=== PATIENT | male | born 1940 | race Caucasian/White ===

== ENCOUNTER 2018-09-15 13:39 | Emergency (ER) | payer MEDICARE, OTHER ==
--- NOTE | 2018-09-15 13:54 | EDM.PDOC ---
ED HPI GENERAL MEDICAL PROBLEM - General Stated Complaint: BLOOD PRESSURE HIGH Time Seen by Provider: 09/15/18 13:54 Source of Information: Reports: Patient, RN, RN Notes Reviewed History Limitations: Reports: No Limitations - History of Present Illness INITIAL COMMENTS - FREE TEXT/NARRATIVE: Pt to ER with c/o high blood pressure. Patient states he was seen in the clinic last week and diagnosed with hypertension. He was sent to [place] and had several tests done. He states he was put on 2 BP medications ( ) and he states he did not feel well and was "acting funny" after beginning the medications. He states he talked to the 's office who started him on the meds and he was to stop taking them but monitor his BP. He states he has "eye migraines" about once per month, and today he has had 2 in one day. He states he feels very anxious at this time. Patient denies any pain at this time or any further complaints. Onset: Today, Sudden - Related Data Allergies Allergy/AdvReac Type Severity Reaction Status Date / Time No Known Allergies Allergy Verified 05/10/16 19:21 Home Meds: Home Meds amLODIPine Besylate/Benazepril [Amlodipine-Benazepril 5-10 MG] 1 each PO DAILY 09/15/18 [History] Past Medical History - Past Health History Medical/Surgical History: Denies Medical/Surgical History Other Cardiovascular History: heart murmur following a trauma to chest in 1972 - Past Surgical History GI Surgical History: Reports: Hernia Repair/Other Social & Family History - Caffeine Use Caffeine Use: Reports: None - Living Situation & Occupation Occupation: Retired ED ROS GENERAL - Review of Systems Review Of Systems: ROS reveals no pertinent complaints other than HPI. ED EXAM, GENERAL - Physical Exam Exam: See Below Exam Limited By: No Limitations General Appearance: Alert, WD/WN, Anxious, Mild Distress Eye Exam: Bilateral Eye: EOMI, Normal Inspection Ears: Normal External Exam, Hearing Grossly Normal Nose: Normal Inspection Throat/Mouth: Normal Inspection, Normal Voice, No Airway Compromise Head: Atraumatic, Normocephalic Neck: Normal Inspection, Supple, Non-Tender, Full Range of Motion Respiratory/Chest: No Respiratory Distress, Lungs Clear, Normal Breath Sounds, No Accessory Muscle Use, Chest Non-Tender Cardiovascular: Normal Peripheral Pulses, Regular Rate, Rhythm, No Edema, No Gallop, No JVD, No Murmur, No Rub Peripheral Pulses: 2+: Radial (L), Radial (R) GI/Abdominal: Normal Bowel Sounds, Soft, Non-Tender (Male) Exam: Deferred Rectal (Males) Exam: Deferred Back Exam: Normal Inspection, Full Range of Motion, NT Extremities: Normal Inspection, Normal Range of Motion, Non-Tender, Normal Capillary Refill, No Pedal Edema Neurological: Alert, Oriented, CN II-XII Intact, Normal Cognition, Normal Gait, Normal Reflexes, No Motor/Sensory Deficits Psychiatric: Normal Affect, Anxious, Tearful Skin Exam: Warm, Dry, Intact, Normal Color, No Rash Lymphatic: No Adenopathy Course - Vital Signs Last Recorded V/S: Last Vital Signs Temp 98.1 F 09/15/18 13:50 Pulse 84 09/15/18 16:57 Resp 18 09/15/18 13:50 BP 156/92 H 09/15/18 16:57 Pulse Ox 99 09/15/18 13:50 - Orders/Labs/Meds Orders: Active Orders 24 hr Category Date Time Status Peripheral IV Care [RC] . DIRECTED Care 09/15/18 14:02 Active Sodium Chloride 0.9% [Saline Flush] Med 09/15/18 14:02 Active 10 ml FLUSH ASDIRECTED PRN Peripheral IV Insertion Adult [OM.PC] Stat Oth 09/15/18 14:02 Ordered Medication Orders Sodium Chloride (Saline Flush) 10 ml FLUSH ASDIRECTED PRN PRN Reason: Keep Vein Open Last Admin: 09/15/18 14:56 Dose: 10 ml Labs: Laboratory Tests 09/15/18 09/15/18 Range/Units 14:09 14:09 WBC 6.8 (5.0-10.0) 10^3/uL RBC 5.44 (4.6-6.2) 10^6/uL Hgb 16.8 (14.0-18.0) g/dL Hct 49.8 (40.0-54.0) % MCV 91.5 (80-100) fL MCH 30.9 (27.0-34.0) pg MCHC 33.7 (33.0-35.0) g/dL Plt Count 182 (150-450) 10^3/uL Neut % (Auto) 62.5 (42.2-75.2) % Lymph % (Auto) 22.5 (20.5-50.1) % Young % (Auto) 12.6 H (2-8) % Eos % (Auto) 2.0 (1.0-3.0) % Baso % (Auto) 0.4 (0.0-1.0) % Sodium 138 (135-145) mmol/L Potassium 4.1 (3.6-5.0) mmol/L Chloride 102 (101-111) mmol/L Carbon Dioxide 25.0 (21.0-31.0) mmol/L Anion Gap 15.1 BUN 29 H (7-18) mg/dL Creatinine 1.1 (0.6-1.3) mg/dL Est Cr Clr Drug Dosing TNP Estimated GFR (MDRD) > 60 BUN/Creatinine Ratio 26.36 Glucose 118 H (74-105) mg/dL Calcium 9.5 (8.4-10.2) mg/dl Total Bilirubin 0.9 (0.2-1.0) mg/dL AST 19 (10-42) IU/L ALT 18 (10-60) IU/L Alkaline Phosphatase 64 (42-121) IU/L Total Protein 7.2 (6.7-8.2) g/dl Albumin 4.1 (3.2-5.5) g/dl Globulin 3.1 Albumin/Globulin Ratio 1.32 Meds: Medications Generic Name Dose Route Start Last Admin Trade Name Freq PRN Reason Stop Dose Admin Sodium Chloride 10 ml 09/15/18 14:02 09/15/18 14:56 Saline Flush FLUSH 10 ml ASDIRECTED PRN Administration Keep Vein Open Discontinued Medications Generic Name Dose Route Start Last Admin Trade Name Freq PRN Reason Stop Dose Admin Labetalol HCl 100 mg 09/15/18 16:49 09/15/18 16:57 Normodyne PO 09/15/18 16:50 100 mg ONETIME ONE Administration Lorazepam 1 mg 09/15/18 14:13 09/15/18 14:56 Ativan IVPUSH 09/15/18 14:14 1 mg ONETIME ONE Administration - Re-Assessments/Exams Free Text/Narrative Re-Assessment/Exam: 09/15/18 16:53 Discussed patient case with Dr. Mora who states the patient can stop taking the Lotrel and Diazide and begin taking labetolol. He is to take the medication for at least 2 weeks before being seen in the clinic. He also is to take the anxiety medication he has been prescribed. 09/15/18 17:07 Patient states his will be driving him home today. Departure - Departure Time of Disposition: 17:08 Disposition: Home, Self-Care 01 Condition: Fair Clinical Impression: Anxiety Hypertension Qualifiers: Hypertension type: unspecified Qualified Code(s): I10 - Essential (primary) hypertension Instructions: How to Take Your Blood Pressure, [id number], Panic Attack, Easy -to-Read, DASH Eating Plan, Hypertension, [id number] Forms: ED Department Discharge Additional Instructions: RX: Labetolol Take your anxiety medications as prescribed Follow up with Dr. Ling Follow up with Dr. Mora Return to the ER with any further problems. - My Orders Last 24 Hours: My Active Orders 09/15/18 14:02 Peripheral IV Care [RC] . DIRECTED Sodium Chloride 0.9% [Saline Flush] 10 ml FLUSH ASDIRECTED PRN Peripheral IV Insertion Adult [OM.PC] Stat - Assessment/Plan Last 24 Hours: My Active Orders 09/15/18 14:02 Peripheral IV Care [RC] . DIRECTED Sodium Chloride 0.9% [Saline Flush] 10 ml FLUSH ASDIRECTED PRN Peripheral IV Insertion Adult [OM.PC] Stat
[2018-09-15 14:34] LABS: ANION GAP 15.1; CHLORIDE,CL 102 mmol/L (101-111); SODIUM,NA 138 mmol/L (135-145)
[2018-09-15] MEDS: LORazepam 2 MG/ML Syringe IVPUSH ONE (14:56)
[2018-09-15] MEDS: Sodium Chloride 0.9% 10 ML Syringe FLUSH PRN (14:56)
[2018-09-15] MEDS: Labetalol 100 MG Tab PO ONE (16:57)
[2018-09-15 17:19] VITALS: BP 151/62
== END 2018-09-15 17:11 | disposition home or self-care (01) ==
LOC: DL.ED 13:39
DX: F41.9 Anxiety disorder, unspecified (principal); I10 Essential (primary) hypertension; Z79.899 Other long term (current) drug therapy
CPT/HCPCS: 36415; 80053; 85025; 96374; 99283; A9270; J2060

== ENCOUNTER 2019-02-26 19:00 | Emergency (ER) | payer MEDICARE, OTHER ==
[2019-02-26 19:39] LABS: ANION GAP 13.8; CHLORIDE,CL 103 mmol/L (101-111); SODIUM,NA 136 mmol/L (135-145)
--- NOTE | 2019-02-26 20:12 | EDM.PDOC ---
ED HPI GENERAL MEDICAL PROBLEM - General Chief Complaint: Chest Pain Stated Complaint: CHEST PAIN Time Seen by Provider: 02/26/19 20:08 Source of Information: Reports: Patient History Limitations: Reports: No Limitations - History of Present Illness INITIAL COMMENTS - FREE TEXT/NARRATIVE: sudden onset intermittent sharp pain going across lower front chest area. occurred after having to clear snow away from their furnace pipe outlet. states was being careful not to over extend himself and didn't think he did. right now sharp pain is gone but it tends to come and go. never had this before. also been feeling very weak, no energy, tired and occasional muscle cramps in hands. Middle Mid-Sternal Chest Pain Score (Numeric/FACES): 5 - Related Data Allergies Allergy/AdvReac Type Severity Reaction Status Date / Time No Known Allergies Allergy Verified 02/26/19 19:16 Home Meds: Home Meds amLODIPine Besylate/Benazepril [Amlodipine-Benazepril 5-10 MG] 1 each PO DAILY 09/15/18 [History] Past Medical History - Past Health History Medical/Surgical History: Denies Medical/Surgical History Other Cardiovascular History: heart murmur following a trauma to chest in 1972 - Past Surgical History HEENT Surgical History: Reports: Tonsillectomy GI Surgical History: Reports: Hernia Repair/Other Other Musculoskeletal Surgeries/Procedures:: L3-L4 surgery in 1985 Social & Family History - Family History Family Medical History: Noncontributory - Tobacco Use Smoking Status *Q: Never Smoker - Caffeine Use Caffeine Use: Reports: None - Recreational Drug Use Recreational Drug Use: No - Living Situation & Occupation Occupation: Retired ED ROS GENERAL - Review of Systems Review Of Systems: ROS reveals no pertinent complaints other than HPI. ED EXAM, GENERAL - Physical Exam Exam: See Below Exam Limited By: No Limitations General Appearance: Alert, WD/WN, Anxious, Mild Distress, Other (upset) Ears: Hearing Grossly Normal Throat/Mouth: Normal Voice, No Airway Compromise Head: Atraumatic Neck: Non-Tender, Full Range of Motion Respiratory/Chest: No Respiratory Distress Cardiovascular: Regular Rate, Rhythm GI/Abdominal: Soft, Non-Tender Extremities: No Pedal Edema Neurological: Alert, Oriented, Normal Cognition, Normal Gait, No Motor/Sensory Deficits Psychiatric: Anxious Skin Exam: Warm, Dry, Normal Color Lymphatic: No Adenopathy Course - Vital Signs Last Recorded V/S: Last Vital Signs Temp 36.6 C 02/27/19 06:24 Pulse 88 02/27/19 06:24 Resp 20 02/27/19 06:24 BP 122/87 02/27/19 05:17 Pulse Ox 96 02/27/19 06:24 - Orders/Labs/Meds Labs: Laboratory Tests 02/26/19 02/26/19 02/27/19 Range/Units 19:12 19:12 05:20 WBC 9.1 (5.0-10.0) 10^3/uL RBC 5.51 (4.6-6.2) 10^6/uL Hgb 17.1 (14.0-18.0) g/dL Hct 49.5 (40.0-54.0) % MCV 89.8 (80-100) fL MCH 31.0 (27.0-34.0) pg MCHC 34.5 (33.0-35.0) g/dL Plt Count 212 (150-450) 10^3/uL Neut % (Auto) 69.8 (42.2-75.2) % Lymph % (Auto) 15.5 L (20.5-50.1) % Mower % (Auto) 13.4 H (2-8) % Eos % (Auto) 1.0 (1.0-3.0) % Baso % (Auto) 0.3 (0.0-1.0) % Sodium 136 (135-145) mmol/L Potassium 3.8 (3.6-5.0) mmol/L Chloride 103 (101-111) mmol/L Carbon Dioxide 23.0 (21.0-31.0) mmol/L Anion Gap 13.8 BUN 25 H (7-18) mg/dL Creatinine 1.0 (0.6-1.3) mg/dL Est Cr Clr Drug Dosing 64.67 mL/min Estimated GFR (MDRD) > 60 BUN/Creatinine Ratio 25.00 Glucose 107 H (74-105) mg/dL Calcium 9.4 (8.4-10.2) mg/dl Total Bilirubin 0.9 (0.2-1.0) mg/dL AST 24 (10-42) IU/L ALT 16 (10-60) IU/L Alkaline Phosphatase 64 (42-121) IU/L Troponin I < 0.02 < 0.02 (0.00-0.02) ng/ml B-Natriuretic Peptide 79 (0-100) pg/ml Total Protein 7.4 (6.7-8.2) g/dl Albumin 4.1 (3.2-5.5) g/dl Globulin 3.3 Albumin/Globulin Ratio 1.24 Meds: Medications Discontinued Medications Generic Name Dose Route Start Last Admin Trade Name Francq PRN Reason Stop Dose Admin Sodium Chloride 1,000 mls @ 100 mls/hr 02/26/19 20:15 02/26/19 20:28 Normal Saline IV 100 mls/hr ASDIRECTED DEJUAN Administration Lorazepam 1 mg 02/26/19 21:33 02/26/19 21:39 Ativan PO 02/26/19 21:34 1 mg ONETIME ONE Administration - Re-Assessments/Exams Free Text/Narrative Re-Assessment/Exam: 02/26/19 20:11 results discussed with pt. plan for extended ER 02/27/19 06:06 results discussed with pt who is feeling much better presently. Departure - Departure Time of Disposition: 07:30 Disposition: Home, Self-Care 01 Condition: Good Clinical Impression: Dehydration symptoms, Atypical chest pain Chest pain Qualifiers: Chest pain type: unspecified Qualified Code(s): R07.9 - Chest pain, unspecified Forms: ED Department Discharge Additional Instructions: 1) rest and avoid lifting bending straining 2) try ice or heat to sore area 3) recheck if there is any change or concern
[2019-02-26] MEDS ORDERED: Sodium Chloride 0.9% 1,000 ML IV SCH (20:15)
[2019-02-26] MEDS ORDERED: LORazepam 1 MG Tab PO ONE (21:33)
[2019-02-27 05:18] VITALS: BP 122/87
[2019-02-27 06:29] VITALS: PULSE 88
== END 2019-02-27 07:30 | disposition home or self-care (01) ==
LOC: DL.ED 19:00
DX: E86.0 Dehydration (principal); R07.89 Other chest pain
CPT/HCPCS: 36415; 71045; 80053; 83880; 84484; 85025; 93005; 96365; 96366; 96375; 99285-25; A9270-GY; J7030

== ENCOUNTER 2021-05-24 08:48 | Emergency (ER) | payer MEDICARE, OTHER ==
[2021-05-24] MEDS ORDERED: Sodium Chloride 0.9% 10 ML Syringe FLUSH PRN (08:57)
--- NOTE | 2021-05-24 08:57 | EDM.PDOC ---
ED HPI GENERAL MEDICAL PROBLEM - General Chief Complaint: Fever Stated Complaint: SYNCOPE, FEVER Time Seen by Provider: 05/24/21 08:57 Source of Information: Reports: Patient, Old Records, Provider (Dr. Adan), RN, RN Notes Reviewed History Limitations: Reports: No Limitations - History of Present Illness INITIAL COMMENTS - FREE TEXT/NARRATIVE: Pt arrives to ER by wheelchair sent from clinic by Dr. Adan with report that the pt presented with c/o fever, chills, sore throat, cough, and body aches. Symptoms began suddenly on Friday, May.22. Today he went to clinic, and as he was about to leave clinic he vomited on the floor and had a syncopal episode. Pt states he did not have chest pain, shortness of breath, or palpitations preceding the syncope. His has had similar symptoms. He tested negative for COVID 2 days ago. Onset: Sudden Onset Date: 05/22/21 Duration: Constant Location: Reports: Generalized Quality: Reports: Ache Severity: Moderate Improves with: Reports: None Worsens with: Reports: None Context: Reports: Sick Contact - Related Data Allergies Allergy/AdvReac Type Severity Reaction Status Date / Time No Known Allergies Allergy Verified 02/26/19 19:16 Home Meds: Home Meds amLODIPine Besylate/Benazepril [Amlodipine-Benazepril 5-10 MG] 1 each PO DAILY 09/15/18 [History] Past Medical History - Past Health History Medical/Surgical History: Denies Medical/Surgical History Other Cardiovascular History: heart murmur following a trauma to chest in 1972 - Past Surgical History HEENT Surgical History: Reports: Tonsillectomy GI Surgical History: Reports: Hernia Repair/Other Other Musculoskeletal Surgeries/Procedures:: L3-L4 surgery in 1985 Social & Family History - Family History Family Medical History: No Pertinent Family History - Caffeine Use Caffeine Use: Reports: None - Living Situation & Occupation Living situation: Reports: , with Spouse Occupation: Retired ED ROS GENERAL - Review of Systems Review Of Systems: Comprehensive ROS is negative, except as noted in HPI. - Physical Exam Exam: See Below Exam Limited By: No Limitations General Appearance: Alert, WD/WN, No Apparent Distress, Anxious Eye Exam: Bilateral Eye: Normal Inspection Nose: No Blood, Nasal Drainage Throat/Mouth: Normal Lips, Normal Voice, No Airway Compromise, Other (Very dry oral mucosa) Head Exam: Atraumatic, Normocephalic Neck: Normal Inspection, Supple, Non-Tender, Full Range of Motion. No: Lymphadenopathy (L), Lymphadenopathy (R) Respiratory/Chest: No Respiratory Distress, Lungs Clear, Normal Breath Sounds, No Accessory Muscle Use, Chest Non-Tender Cardiovascular: Regular Rate, Rhythm, No Edema GI/Abdominal: Normal Bowel Sounds, Soft, Non-Tender Neuro Exam (Abbreviated): Alert, Oriented, No Motor/Sensory Deficits Back Exam: Normal Inspection Extremities: Normal Inspection, Normal Range of Motion, Non-Tender, No Pedal Edema, Normal Capillary Refill Psychiatric: Normal Affect, Normal Mood Skin Exam: Warm, Dry, Intact, Normal Color, No Rash #1 Interpretation EKG Date: 05/24/21 Time: 09:44 Rhythm: Other (SR) Rate (Beats/Min): 84 [place]: Normal P-Wave: Present QRS: Normal ST-T: Normal QT: Normal Comparison: NA - No Prior EKG Course - Vital Signs Last Recorded V/S: Last Vital Signs Temp 98.1 F 05/24/21 09:35 Pulse 86 05/24/21 09:35 Resp 16 05/24/21 09:35 BP 126/72 05/24/21 09:35 Pulse Ox 98 05/24/21 09:35 Orthostatic Blood Pressure [ 119/66 Standing] Orthostatic Blood Pressure [ 116/66 Sitting] Orthostatic Blood Pressure [ 137/69 Supine] - Orders/Labs/Meds Orders: Active Orders 24 hr Category Date Time Status Orthostatic Vital Signs [RC] ASDIRECTED Care 05/24/21 09:04 Active Peripheral IV Care [RC] . DIRECTED Care 05/24/21 08:59 Active CULTURE BLOOD [BC] Stat Lab 05/24/21 09:13 Received CULTURE BLOOD [BC] Stat Lab 05/24/21 09:20 Received UA RFX AVERY AND CULT IF INDIC [URIN] Stat Lab 05/24/21 08:59 Ordered Sodium Chloride 0.9% [Saline Flush] Med 05/24/21 08:57 Active 10 ml FLUSH ASDIRECTED PRN Blood Culture x2 Reflex Set [OM.PC] Stat Oth 05/24/21 08:58 Ordered Peripheral IV Insertion Adult [OM.PC] Stat Oth 05/24/21 08:58 Ordered Medication Orders Sodium Chloride (Sodium Chloride 0.9% 10 Ml Syringe) 10 ml FLUSH ASDIRECTED PRN PRN Reason: Keep Vein Open Last Admin: 05/24/21 09:23 Dose: 10 ml Documented by: MARÍA Labs: Laboratory Tests 05/24/21 05/24/21 05/24/21 Range/Units 09:00 09:20 09:20 WBC 7.0 (5.0-10.0) 10^3/uL RBC 5.24 (4.6-6.2) 10^6/uL Hgb 16.2 (14.0-18.0) g/dL Hct 47.9 (40.0-54.0) % MCV 91.4 (80-100) fL MCH 30.9 (27.0-34.0) pg MCHC 33.8 (33.0-35.0) g/dL Plt Count 167 (150-450) 10^3/uL Neut % (Auto) 67.9 (42.2-75.2) % Lymph % (Auto) 15.2 L (20.5-50.1) % Garrett % (Auto) 16.4 H (2-8) % Eos % (Auto) 0.1 L (1.0-3.0) % Baso % (Auto) 0.4 (0.0-1.0) % Sodium 136 (136-145) mmol/L Potassium 4.7 (3.5-5.1) mmol/L Chloride 99 (98-107) mmol/L Carbon Dioxide 26 (21-32) mmol/L Anion Gap 15.7 H (7-13) mEq/L BUN 22 H (7-18) mg/dL Creatinine 1.25 (0.70-1.30) mg/dL Est Cr Clr Drug Dosing TNP Estimated GFR (MDRD) 55 BUN/Creatinine Ratio 17.6 (No establ ref range) Glucose 136 H (70-99) mg/dL Lactic Acid (0.4-2.0) mmol/L Calcium 8.6 (8.5-10.1) mg/dL Total Bilirubin 0.6 (0.2-1.0) mg/dL AST 16 (15-37) U/L ALT 17 (16-63) U/L Alkaline Phosphatase 64 (46-116) U/L Troponin I High Sens 15 (<=76) pg/mL Total Protein 6.9 (6.4-8.2) g/dL Albumin 3.4 (3.4-5.0) g/dL Globulin 3.5 Albumin/Globulin Ratio 1.0 Influenza Type A RNA Positive H (NEGATIVE) RSV RNA (INAAT) Negative (NEGATIVE) Influenza Type B RNA Negative (NEGATIVE) SARS-CoV-2 RNA (MARKUS) Negative (NEGATIVE) 05/24/21 Range/Units 09:20 WBC (5.0-10.0) 10^3/uL RBC (4.6-6.2) 10^6/uL Hgb (14.0-18.0) g/dL Hct (40.0-54.0) % MCV (80-100) fL MCH (27.0-34.0) pg MCHC (33.0-35.0) g/dL Plt Count (150-450) 10^3/uL Neut % (Auto) (42.2-75.2) % Lymph % (Auto) (20.5-50.1) % Garrett % (Auto) (2-8) % Eos % (Auto) (1.0-3.0) % Baso % (Auto) (0.0-1.0) % Sodium (136-145) mmol/L Potassium (3.5-5.1) mmol/L Chloride (98-107) mmol/L Carbon Dioxide (21-32) mmol/L Anion Gap (7-13) mEq/L BUN (7-18) mg/dL Creatinine (0.70-1.30) mg/dL Est Cr Clr Drug Dosing Estimated GFR (MDRD) BUN/Creatinine Ratio (No establ ref range) Glucose (70-99) mg/dL Lactic Acid 1.2 (0.4-2.0) mmol/L Calcium (8.5-10.1) mg/dL Total Bilirubin (0.2-1.0) mg/dL AST (15-37) U/L ALT (16-63) U/L Alkaline Phosphatase (46-116) U/L Troponin I High Sens (<=76) pg/mL Total Protein (6.4-8.2) g/dL Albumin (3.4-5.0) g/dL Globulin Albumin/Globulin Ratio Influenza Type A RNA (NEGATIVE) RSV RNA (INAAT) (NEGATIVE) Influenza Type B RNA (NEGATIVE) SARS-CoV-2 RNA (MARKUS) (NEGATIVE) Rapid Strep: negative Meds: Medications Generic Name Dose Route Start Last Admin Trade Name Abbie PRN Reason Stop Dose Admin Sodium Chloride 10 ml 05/24/21 08:57 05/24/21 09:23 Sodium Chloride 0.9% 10 Ml Syringe FLUSH 10 ml ASDIRECTED PRN Administration Keep Vein Open Discontinued Medications Generic Name Dose Route Start Last Admin Trade Name Frebora PRN Reason Stop Dose Admin Acetaminophen 1,000 mg 05/24/21 11:07 05/24/21 11:12 Acetaminophen 500 Mg Tab PO 05/24/21 11:08 1,000 mg ONETIME ONE Administration Sodium Chloride 1,000 mls @ 999 mls/hr 05/24/21 08:59 05/24/21 09:28 Normal Saline IV 05/24/21 09:59 999 mls/hr .BOLUS ONE Administration Sodium Chloride 1,000 mls @ 999 mls/hr 05/24/21 11:06 05/24/21 11:11 Normal Saline IV 05/24/21 12:06 999 mls/hr .BOLUS ONE Administration Ketorolac Tromethamine 30 mg 05/24/21 11:06 05/24/21 11:11 Ketorolac 30 Mg/Ml Sdv IVPUSH 05/24/21 11:07 30 mg ONETIME ONE Administration Ondansetron HCl 4 mg 05/24/21 08:59 05/24/21 09:28 Ondansetron 4 Mg/2 Ml Sdv IV 05/24/21 09:00 4 mg ONETIME ONE Administration Oseltamivir Phosphate 75 mg 05/24/21 11:10 05/24/21 11:13 Oseltamivir 75 Mg Cap PO 05/24/21 11:11 75 mg ONETIME ONE Administration - Radiology Interpretation Free Text/Narrative:: [facility] Final Radiology Report Call: [phone] assistance Online chat: [email or web address] Name: TUAN SHAHID Age: 81Years M Date: 05/24/2021 SSN: -- : [id number] Study: CR CHEST 1V FRONTAL Requesting Physician: KEITH ORTIZ Images: 1 Addl Studies: Provided Clinical History: syncope, cough, fever Contrast: Contrast Medium: Contrast Amount: Contrast Method: CONFIDENTIALITY STATEMENT This report is intended only for use by the referring physician, and only in accordance with law. If you received this in error, call [phone]. Page 1 of 1 PROCEDURE INFORMATION: Exam: XR Chest Exam date and time: 05/24/2021 9:15 AM Age: 81 years old Clinical indication: Fever and shortness of breath and other: Syncope; Additional info: Syncope, cough, fever TECHNIQUE: Imaging protocol: XR of the chest. Views: 1 view. COMPARISON: CR Chest 1V Frontal 02/26/2019 7:20 PM FINDINGS: Lungs: Minimal ground-glass airspace disease at the periphery of the left lower lung field. Pleural spaces: Unremarkable. No pleural effusion. No pneumothorax. Heart/Mediastinum: The heart is enlarged. Bones/joints: Unremarkable. IMPRESSION: 1. Minimal ground-glass airspace disease at the periphery of the left lower lung field. 2. Followup radiographs recommended after appropriate therapy. Thank you for allowing us to participate in the care of your patient. Dictated and Authenticated by: Tristan Arriaga MD 05/24/2021 9:45 AM Central Time ([place] & [place]) Departure - Departure Time of Disposition: 12:59 Disposition: Home, Self-Care 01 Condition: Fair Clinical Impression: Influenza A, Dehydration Syncope Qualifiers: Syncope type: vasovagal syncope Qualified Code(s): R55 - Syncope and collapse - Discharge Information *PRESCRIPTION DRUG MONITORING PROGRAM REVIEWED*: Not Applicable *COPY OF PRESCRIPTION DRUG MONITORING REPORT IN PATIENT GENESIS: Not Applicable Instructions: Influenza, Adult, Syncope, Dehydration, Adult Forms: ED Department Discharge Additional Instructions: Rx: Zofran 4mg Rx: Tamiflu 75mg Use Tylenol (Acetaminophen) and/or Ibuprofen (Motrin/Advil) as needed for fevers or body aches. Follow directions on label for dosing and precautions. Drink plenty of water, Pedialyte, or Gatorade. Follow up in clinic or return to ER if you develop any difficulty breathing. Sepsis Event Note (ED) - Focused Exam Vital Signs: Vital Signs Temp Pulse Resp BP Pulse Ox 05/24/21 09:35 98.1 F 86 16 126/72 98 - My Orders Last 24 Hours: My Active Orders 05/24/21 08:57 Sodium Chloride 0.9% [Saline Flush] 10 ml FLUSH ASDIRECTED PRN 05/24/21 08:58 Blood Culture x2 Reflex Set [OM.PC] Stat Peripheral IV Insertion Adult [OM.PC] Stat 05/24/21 08:59 Peripheral IV Care [RC] . DIRECTED UA RFX AVERY AND CULT IF INDIC [URIN] Stat 05/24/21 09:04 Orthostatic Vital Signs [RC] ASDIRECTED 05/24/21 09:13 CULTURE BLOOD [BC] Stat 05/24/21 09:20 CULTURE BLOOD [BC] Stat - Assessment/Plan Last 24 Hours: My Active Orders 05/24/21 08:57 Sodium Chloride 0.9% [Saline Flush] 10 ml FLUSH ASDIRECTED PRN 05/24/21 08:58 Blood Culture x2 Reflex Set [OM.PC] Stat Peripheral IV Insertion Adult [OM.PC] Stat 05/24/21 08:59 Peripheral IV Care [RC] . DIRECTED UA RFX AVERY AND CULT IF INDIC [URIN] Stat 05/24/21 09:04 Orthostatic Vital Signs [RC] ASDIRECTED 05/24/21 09:13 CULTURE BLOOD [BC] Stat 05/24/21 09:20 CULTURE BLOOD [BC] Stat
[2021-05-24] MEDS ORDERED: Ondansetron 4 MG/2 ML SDV IV ONE (08:59)
[2021-05-24] MEDS ORDERED: Sodium Chloride 0.9% 1,000 ML IV ONE ×2 (08:59→11:06)
[2021-05-24 09:46] LABS: CORONAVIRUS COVID-19 NAA NEGATIVE (NEGATIVE); RESPIRATORY SYNCYTIAL VIR NAA NEGATIVE (NEGATIVE)
--- NOTE | 2021-05-24 09:46 | CR ---
PROCEDURE INFORMATION: Exam: XR Chest Exam date and time: 05/24/2021 9:15 AM Age: 81 years old Clinical indication: Fever and shortness of breath and other: Syncope; Additional info: Syncope, cough, fever TECHNIQUE: Imaging protocol: XR of the chest. Views: 1 view. COMPARISON: CR Chest 1V Frontal 02/26/2019 7:20 PM FINDINGS: Lungs: Minimal ground-glass airspace disease at the periphery of the left lower lung field. Pleural spaces: Unremarkable. No pleural effusion. No pneumothorax. Heart/Mediastinum: The heart is enlarged. Bones/joints: Unremarkable. IMPRESSION: 1. Minimal ground-glass airspace disease at the periphery of the left lower lung field. 2. Followup radiographs recommended after appropriate therapy.
[2021-05-24 09:52] VITALS: BP 126/72; PULSE 86
[2021-05-24 09:55] LABS: ANION GAP 15.7 mEq/L (7-13); CHLORIDE,CL 99 mmol/L (98-107); SODIUM,NA 136 mmol/L (136-145)
[2021-05-24] MEDS ORDERED: Ketorolac 30 MG/ML SDV IVPUSH ONE (11:06)
[2021-05-24] MEDS ORDERED: Acetaminophen 500 MG Tab PO ONE (11:07)
[2021-05-24] MEDS ORDERED: Oseltamivir 75 MG Cap PO ONE (11:10)
== END 2021-05-24 13:15 | disposition home or self-care (01) ==
LOC: DL.ED 08:48
DX: J10.1 Influenza due to other identified influenza virus with other respiratory manifestations (principal); E86.0 Dehydration; R55 Syncope and collapse; Z20.822 Contact with and (suspected) exposure to COVID-19
CPT/HCPCS: 0241U; 36415; 71045; 80053; 83605; 84484; 85025; 87040; 87430; 93005; 96374; 96375; 99284; A9270; J1885; J2405; J7030

== ENCOUNTER 2022-03-21 01:11 | Emergency (ER) | payer MEDICARE, OTHER ==
[2022-03-21] MEDS ORDERED: Aspirin 81 MG Tab.Chew PO ONE (01:24)
[2022-03-21] MEDS ORDERED: Aspirin 81 MG Tab.Chew ONE (01:26)
[2022-03-21] MEDS ORDERED: Heparin Sodium 5,000 Units/ML Vial IVPUSH ONE (01:36)
[2022-03-21] MEDS ORDERED: Heparin Sodium/0.45% NaCl 500 ML ONE (01:40)
[2022-03-21] MEDS: Nitroglycerin 0.4 MG Tab.SL SL ONE ×2 (01:43→01:53)
[2022-03-21] MEDS ORDERED: Heparin Sodium/0.45% NaCl 25,000 UNITS/500 ML BAG IV SCH (01:45)
[2022-03-21 01:54] VITALS: BP 137/77
[2022-03-21 01:57] VITALS: PULSE 75
[2022-03-21] MEDS ORDERED: Ondansetron 4 MG/2 ML SDV IVPUSH ONE (01:58)
[2022-03-21] MEDS ORDERED: Morphine 2 MG/ML SYRINGE IVPUSH ONE (01:58)
[2022-03-21] MEDS ORDERED: Ondansetron 4 MG/2 ML SDV ONE (02:02)
[2022-03-21] MEDS ORDERED: Morphine 2 MG/ML SYRINGE ONE (02:06)
[2022-03-21] MEDS ORDERED: Clopidogrel 75 MG Tab ONE (02:19)
[2022-03-21 03:26] LABS: PTT,PARTIAL THROMBOPLSTIN TIME 23.7 SEC (22.0-34.0)
[2022-03-21 07:05] LABS: ANION GAP 12.7 mEq/L (7-13); CHLORIDE,CL 100 mmol/L (98-107); SODIUM,NA 135 mmol/L (136-145)
[2022-03-21 07:07] LABS: ESTIMATED GFR 66 mL/min (>=60)
== END 2022-03-21 02:28 ==
LOC: DL.ED 01:11
DX: I21.3 ST elevation (STEMI) myocardial infarction of unspecified site (principal); Z79.899 Other long term (current) drug therapy; Z20.822 Contact with and (suspected) exposure to COVID-19
CPT/HCPCS: 36415; 71045; 80053; 82150; 83605; 83690; 84484; 85025; 85610; 85730; 86140; 93005; 96365; 96375; 99285; A9270; J1644; J2270; J2405; U0002

== ENCOUNTER 2022-03-28 17:15 | Emergency (ER) | payer MEDICARE ==
[2022-03-28] MEDS ORDERED: Sodium Chloride 0.9% 10 ML Syringe FLUSH PRN (17:27)
[2022-03-28 18:06] LABS: ANION GAP 13.8 mEq/L (7-13); CHLORIDE,CL 100 mmol/L (98-107); SODIUM,NA 137 mmol/L (136-145)
[2022-03-28 18:09] LABS: ESTIMATED GFR 47 mL/min (>=60)
[2022-03-28 18:34] VITALS: BP 149/85; PULSE 89
== END 2022-03-28 20:28 | disposition home or self-care (01) ==
LOC: DL.ED 17:15
DX: R07.9 Chest pain, unspecified (principal); R77.8 Other specified abnormalities of plasma proteins; I25.2 Old myocardial infarction; Z79.899 Other long term (current) drug therapy; Z79.02 Long term (current) use of antithrombotics/antiplatelets
CPT/HCPCS: 36415; 80053; 83605; 83735; 84484; 85025; 85610; 86140; 93005; 99283

== ENCOUNTER 2022-08-02 03:14 | Inpatient (IN) | payer MEDICARE, OTHER ==
[2022-08-02] MEDS ORDERED: Albuterol/Ipratropium 3.0-0.5 MG/3 ML Neb Soln ONE (03:22)
[2022-08-02] MEDS ORDERED: Sodium Chloride 0.9% 10 ML Syringe FLUSH PRN (03:25)
[2022-08-02] MEDS ORDERED: Iopamidol 755 Mg/ML 100 ML Bottle IVPUSH ONE (03:41)
[2022-08-02] MEDS ORDERED: Albuterol/Ipratropium 3.0-0.5 MG/3 ML Neb Soln NEB ONE (03:44)
[2022-08-02 04:10] LABS: ANION GAP 13.7 mEq/L (7-13); CHLORIDE,CL 105 mmol/L (98-107); SODIUM,NA 141 mmol/L (136-145)
[2022-08-02 04:11] LABS: ESTIMATED GFR 63 mL/min (>=60)
[2022-08-02] MEDS ORDERED: Furosemide 40 MG/4 ML VIAL IVPUSH ONE (04:23)
[2022-08-02] MEDS ORDERED: Nitroglycerin/D5W 25 MG/250 ML BOTTLE IV SCH (05:15)
[2022-08-02] MEDS ORDERED: Ondansetron 4 MG/2 ML SDV IVPUSH PRN (09:00)
[2022-08-02] MEDS ORDERED: Acetaminophen/HYDROcodone 325-5 MG Tab PO PRN (09:00)
[2022-08-02] MEDS ORDERED: Magnesium Hydroxide 400 MG/5 ML Susp 30 ML Cup PO PRN (09:00)
[2022-08-02] MEDS ORDERED: Acetaminophen 325 MG Tab PO PRN (09:00)
[2022-08-02] MEDS ORDERED: Albuterol/Ipratropium 3.0-0.5 MG/3 ML Neb Soln NEB PRN (09:00)
[2022-08-02] MEDS ORDERED: Polyethylene Glycol 3350 Powder 17 GM Packet PO PRN (09:00)
[2022-08-02] MEDS ORDERED: HYDROmorphone 0.5 MG/0.5 ML Syringe IVPUSH PRN (09:00)
[2022-08-02] MEDS: Heparin Sodium/0.45% NaCl 25,000 UNITS/500 ML BAG IV SCH (11:13)
[2022-08-02] MEDS ORDERED: Warfarin 5 MG Tab PO ONE (21:00)
[2022-08-02] MEDS ORDERED: 50% Dextrose in Water 50 ML Syringe IVPUSH PRN (22:50)
[2022-08-02] MEDS ORDERED: Glucagon,Human Recombinant 1 MG Vial IM PRN (22:50)
[2022-08-02] MEDS ORDERED: hydrALAZINE 20 MG/ML SDV IVPUSH PRN (22:51)
[2022-08-02] MEDS ORDERED: Metoprolol Tartrate 5 MG/5 ML SDV IVPUSH PRN (22:51)
[2022-08-02] MEDS ORDERED: Dextrose 5%-0.9% NaCl 1,000 ML IV SCH (23:00)
[2022-08-02] MEDS ORDERED: Insulin Lispro 100 Units/ML 3 ML Vial SUBCUT SCH (23:00)
[2022-08-03] MEDS: Heparin Sodium/0.45% NaCl 25,000 UNITS/500 ML BAG IV SCH (06:26)
[2022-08-03] MEDS: Metoprolol Succinate 50 MG Tab.ER PO SCH (08:58)
[2022-08-03] MEDS ORDERED: Non-Formulary Medication 1 Each (Atorvastatin [Lipitor] 40 MG Tablet) PO SCH (09:00)
[2022-08-03 09:57] LABS: PTT,PARTIAL THROMBOPLSTIN TIME 69.3 SEC (22.0-34.0)
[2022-08-03 10:07] LABS: ANION GAP 11.7 mEq/L (7-13)
[2022-08-03 18:44] LABS: PTT,PARTIAL THROMBOPLSTIN TIME 67.9 SEC (22.0-34.0)
[2022-08-03] MEDS ORDERED: Warfarin 5 MG Tab PO ONE (21:00)
[2022-08-04] MEDS ORDERED: Furosemide 40 MG Tab PO SCH (09:00)
[2022-08-04] MEDS ORDERED: Lisinopril 5 MG Tab PO SCH (09:00)
[2022-08-04] MEDS ORDERED: Spironolactone 25 MG Tab PO SCH (09:00)
[2022-08-04] MEDS: Metoprolol Succinate 50 MG Tab.ER PO SCH (09:20)
[2022-08-04 11:42] VITALS: BP 126/75; PULSE 98
[2022-08-04] MEDS ORDERED: Warfarin 2.5 MG Tab PO ONE (20:00)
== END 2022-08-04 16:30 | disposition home or self-care (01) | DRG 291 ==
LOC: DL.ED 03:14 → DL.MS 06:07
PROVIDERS: ADMIT Internal Medicine; ATTEND Internal Medicine
DX: I11.0 Hypertensive heart disease with heart failure (principal); I50.23 Acute on chronic systolic (congestive) heart failure; J96.01 Acute respiratory failure with hypoxia; I42.9 Cardiomyopathy, unspecified; J90 Pleural effusion, not elsewhere classified; I27.20 Pulmonary hypertension, unspecified; I25.10 Atherosclerotic heart disease of native coronary artery without angina pectoris; E78.5 Hyperlipidemia, unspecified; F41.9 Anxiety disorder, unspecified; R73.9 Hyperglycemia, unspecified; R31.0 Gross hematuria; Z79.02 Long term (current) use of antithrombotics/antiplatelets; Z79.01 Long term (current) use of anticoagulants; Z98.890 Other specified postprocedural states; Z79.899 Other long term (current) drug therapy; Z90.89 Acquired absence of other organs; Z66 Do not resuscitate; Z95.5 Presence of coronary angioplasty implant and graft
CPT/HCPCS: 36415; 51702; 71275; 80053; 83605; 83735; 83880; 84484; 85025; 85610; 86140; 93005; 94640; 94660; 96365; 96375; 99285; J1940; J3490 ×2; Q9967; 84439; 84443; 85730; 99223; 99233; 99238; A9270-GY; J1644; J7620-GY

== ENCOUNTER 2023-08-03 09:00 | Emergency (ER) | payer MEDICARE, OTHER ==
[2023-08-03 09:17] VITALS: BP 186/100; PULSE 95
[2023-08-03] MEDS: Ondansetron 4 MG Tab.DIS ONE (11:25)
[2023-08-03] MEDS: Ondansetron 4 MG Tab.DIS PO ONE (11:26)
== END 2023-08-03 10:50 | disposition home or self-care (01) ==
LOC: DL.ED 09:00
DX: H81.10 Benign paroxysmal vertigo, unspecified ear (principal); I25.2 Old myocardial infarction; Z86.16 Personal history of COVID-19; Z79.899 Other long term (current) drug therapy
CPT/HCPCS: 93005; 93010; 99283; A9270

== ENCOUNTER 2024-11-01 01:37 | Emergency (ER) | payer MEDICARE, OTHER ==
[2024-11-01 02:04] LABS: BASOPHILS PERCENT AUTO 0.5 % (0.0-1.0); EOSINOPHILS PERCENT AUTO 2.4 % (1.0-3.0); HEMATOCRIT 45.8 % (40.0-54.0); HEMOGLOBIN 15.5 g/dL (14.0-18.0); LYMPHOCYTES PERCENT AUTO 36.1 % (20.5-50.1); MEAN CORPUSCULAR HGB CONC 33.8 g/dL (33.0-35.0); MEAN CORPUSCULAR VOLUME 94.6 fL (80-100); MONOCYTES PERCENT AUTO 14.2 % (2-8); NEUTROPHILS PERCENT AUTO 46.8 % (42.2-75.2); PLATELET COUNT,PLT 171 10^3/uL (150-450); RED BLOOD CELL COUNT 4.84 10^6/uL (4.6-6.2); WHITE BLOOD CELL COUNT,WBC 6.3 10^3/uL (5.0-10.0)
[2024-11-01 02:27] LABS: A/G RATIO 0.87; ALBUMIN 3.3 g/dL (3.4-5.0); BILIRUBIN TOTAL 0.4 mg/dL (0.2-1.0); CALCIUM 9.2 mg/dL (8.5-10.1); CREATININE 1.24 mg/dL (0.70-1.30); EST CRCL DRUG DOSING (CG) 45.54 mL/min; MAGNESIUM 2.1 mg/dL (1.8-2.4); PROTEIN TOTAL,TP 7.1 g/dL (6.4-8.2)
[2024-11-01] MEDS: Meclizine 12.5 MG Tab PO ONE (02:55)
[2024-11-01] MEDS: Pseudoephedrine 30 MG Tab PO ONE (02:55)
[2024-11-01 03:29] LABS: APPEARANCE,URINE CLEAR (CLEAR); BILIRUBIN,URINE NEGATIVE (NEGATIVE); COLOR,URINE YELLOW (YELLOW); GLUCOSE,URINE NEGATIVE (NEGATIVE); KETONES,URINE NEGATIVE (NEGATIVE); LEUKOCYTE ESTERASE,URINE NEGATIVE (NEGATIVE); NITRITE,URINE NEGATIVE (NEGATIVE); OCCULT BLOOD,URINE NEGATIVE (NEGATIVE); PROTEIN,URINE NEGATIVE (NEGATIVE); UROBILINOGEN,URINE 0.2 mg/dL (0.2-1.0)
[2024-11-01 04:14] VITALS: BP 137/89; PULSE 72
== END 2024-11-01 04:05 | disposition home or self-care (01) ==
LOC: DL.ED 01:37
DX: R42 Dizziness and giddiness (principal); I25.2 Old myocardial infarction; Z79.02 Long term (current) use of antithrombotics/antiplatelets; Z95.5 Presence of coronary angioplasty implant and graft; Z86.16 Personal history of COVID-19
CPT/HCPCS: 36415; 71045; 80053; 81003; 82947; 83605; 83690; 83735; 83880; 84484; 85025; 93005; 93010; 99283; 99284; A9270-GY

== ENCOUNTER 2025-02-23 08:52 | Emergency (ER) | payer MEDICARE, OTHER ==
[2025-02-23 10:14] VITALS: BP 135/89; PULSE 83
== END 2025-02-23 10:06 | disposition home or self-care (01) ==
LOC: DL.ED 08:52
DX: H11.31 Conjunctival hemorrhage, right eye (principal); I10 Essential (primary) hypertension; Z95.5 Presence of coronary angioplasty implant and graft; Z79.82 Long term (current) use of aspirin; Z79.899 Other long term (current) drug therapy
CPT/HCPCS: 99283